=== PATIENT | male | born 1985 | race American Indian/Alaskan Native ===

== ENCOUNTER 2021-05-08 17:11 | Emergency (ER) | payer MEDICAID, OTHER ==
--- NOTE | 2021-05-08 18:11 | EDM.PDOC ---
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 He injured it quite awhile ago and initially went to the ER in [place]. He does not have a local primary care provider. He has tried OTC meds including gabapentin without relief. He called his primary in the [facility] where he used to live and was told to go to an ER to make sure it is not infected. He says the redness is really not getting any worse. Onset: Unknown/Unsure Duration: Week(s):, Getting Worse (pain is worse) Location: Reports: Lower Extremity, Left Quality: Reports: Ache Severity: Moderate Improves with: Reports: Medication Worsens with: Reports: Other (bumping) Context: Reports: Other (Freed's) Associated Symptoms: Reports: No Other Symptoms. 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: Other (see below) (OTC analgesia) - Related Data Allergies Allergy/AdvReac Type Severity Reaction Status Date / Time No Known Allergies Allergy Verified 05/08/21 17:40 Home Meds: Home Meds Acetaminophen 2 tab PO DAILY 05/08/21 [History] Acetaminophen/HYDROcodone [HYDROcodone-Acetaminophen 5-325 MG *] 1 tab PO Q4H PRN #12 each 05/08/21 [Rx] Gabapentin [Neurontin] 2 tab PO TID 05/08/21 [History] Ibuprofen 2 tab PO DAILY 05/08/21 [History] amLODIPine [Norvasc] 10 mg PO DAILY 05/08/21 [History] Past Medical History Cardiovascular History: Reports: Hypertension Musculoskeletal History: Reports: Other (See Below) Other Musculoskeletal History: buergers disease Psychiatric History: Reports: Panic Attack - Past Surgical History Head Surgeries/Procedures: Reports: None Cardiovascular Surgical History: Reports: None Musculoskeletal Surgical History: Reports: None Dermatological Surgical History: Reports: None Social & Family History - Tobacco Use Tobacco Use Status *Q: Former Tobacco User Used Tobacco, but Quit: Yes Month/Year Tobacco Last Used: 2018 Second Hand Smoke Exposure: No - Caffeine Use Caffeine Use: Reports: Coffee, Energy Drinks - Recreational Drug Use Recreational Drug Use: No Review of Systems - Review of Systems Review Of Systems: See Below Constitutional: Reports: No Symptoms Musculoskeletal: Reports: Foot Pain (L distal great toe) Skin: Reports: Wound (slow healing distal L great toe) Neurological: Reports: No Symptoms ED EXAM, GENERAL - Physical Exam Exam: See Below Exam Limited By: No Limitations General Appearance: Alert, WD/WN, No Apparent Distress Extremities: No Pedal Edema, Other (there is an escar on the end of the L great toe. There is some surrounding purplish discoloration. No red streaks. No purulent discharge or foul odor. ). No: Non-Tender, Pedal Edema, Increased Warmth Neurological: Alert, Oriented, CN II-XII Intact, Normal Cognition Psychiatric: Normal Affect, Normal Mood Skin Exam: Other (See description under extremities) Course - Vital Signs Last Recorded V/S: Last Vital Signs Temp 36.4 C 05/08/21 17:46 Pulse 107 H 05/08/21 17:46 Resp 16 05/08/21 17:46 BP 157/104 H 05/08/21 17:46 Pulse Ox 95 05/08/21 17:46 Departure - Departure Time of Disposition: 18:16 Disposition: Home, Self-Care 01 Condition: Good Clinical Impression: Open wound of left great toe Qualifiers: Encounter type: subsequent encounter Qualified Code(s): S91.102D - Unspecified open wound of left great toe without damage to nail, subsequent encounter - Discharge Information *PRESCRIPTION DRUG MONITORING PROGRAM REVIEWED*: Yes *COPY OF PRESCRIPTION DRUG MONITORING REPORT IN PATIENT ABRAM: Yes Referrals: PCP,Unknown [Primary Care Provider] - Additional Instructions: Use the Hydrocodone as needed for break through pain when your other meds are not sufficient. Someone will call you will an appt for podiatry tomorrow. Sepsis Event Note (ED) - Focused Exam Vital Signs: Vital Signs Temp Pulse Resp BP Pulse Ox 05/08/21 17:46 36.4 C 107 H 16 157/104 H 95 05/08/21 17:27 36.4 C 107 H 16 157/104 H 95
== END 2021-05-08 18:34 | disposition home or self-care (01) ==
LOC: JP.ED 17:11
DX: S91.102A Unspecified open wound of left great toe without damage to nail, initial encounter (principal); I10 Essential (primary) hypertension; Z87.891 Personal history of nicotine dependence; X58.XXXA Exposure to other specified factors, initial encounter
CPT/HCPCS: 99283

== ENCOUNTER 2021-09-12 06:15 | Emergency (ER) | payer MEDICAID | END 2021-09-12 08:22 | disposition home or self-care (01) | LOC: JP.ED 06:15 | DX: R10.12 Left upper quadrant pain (principal); I10 Essential (primary) hypertension; Z72.0 Tobacco use | CPT/HCPCS: 36415; 80053; 83605; 83690; 85025; 99282; 99284 ==

== ENCOUNTER 2021-12-08 06:40 | Emergency (ER) | payer MEDICAID ==
[2021-12-08] MEDS ORDERED: Sodium Chloride 0.9% 10 ML Syringe FLUSH PRN ×2 (06:41→08:27)
[2021-12-08 07:17] LABS: TROPONIN I HIGH SENSITIVITY 11.6 pg/mL (<=60.3)
[2021-12-08] MEDS ORDERED: Aspirin 81 MG Tab.Chew PO ONE (07:18)
[2021-12-08] MEDS ORDERED: Ketorolac 30 MG/ML SDV IVPUSH ONE (07:18)
[2021-12-08] MEDS ORDERED: fentaNYL 100 MCG/2 ML SDV IVPUSH ONE (08:02)
[2021-12-08] MEDS ORDERED: Iopamidol 612 MG/ML 500 ML Multipack Bottle IV ONE (08:27)
[2021-12-08] MEDS ORDERED: Sodium Chloride 0.9% 75 ML IV SCH (08:30)
== END 2021-12-08 11:03 | disposition home or self-care (01) ==
LOC: JP.ED 06:40
DX: R07.89 Other chest pain (principal); I10 Essential (primary) hypertension; F17.210 Nicotine dependence, cigarettes, uncomplicated; Z79.899 Other long term (current) drug therapy
CPT/HCPCS: 36415; 71045; 71045-26; 71260; 71260-26; 80053; 80307; 84484; 85025; 85379; 93005; 93010; 96374; 96375; 99282; 99285-25; A9270-GY; J1885; J3010; J3490; Q9967

== ENCOUNTER 2023-09-05 11:32 | Emergency (ER) | payer MEDICAID | END 2023-09-05 12:00 | disposition left against medical advice (07) | LOC: JP.ED 11:32 | DX: Z53.21 Procedure and treatment not carried out due to patient leaving prior to being seen by health care provider (principal) ==